=== PATIENT | male | born 1970 | race Caucasian/White ===

== ENCOUNTER 2018-04-27 11:34 | Day surgery (SDC) | payer OTHER ==
[~2018-04-27 11:34] MED LIST: FENTAnyl 50 MCG/ML VIAL; SUGAMMADEX SODIUM 200 MG/2 ML VIAL IV
[2018-04-27 13:26] LABS: ADD MAN DIFF? NO
[2018-04-27 13:28] LABS: BASOPHILS % 0.9 % (0.0-2.0); EOSINOPHILS # 0.2 10^3/ul (0.0-0.5); EOSINOPHILS % 3.6 % (0.0-7.0); HEMATOCRIT 45.8 % (42.0-52.0); HEMOGLOBIN 16.2 g/dl (14.0-18.0); LYMPHOCYTES # 1.4 10^3/ul (0.8-2.9); LYMPHOCYTES % 30.4 % (15.0-51.0); MEAN CORPUSCULAR HGB CONC 35.4 g/dl (32.0-37.0); MEAN CORPUSCULAR VOLUME 87.6 fl (82.0-101.0); MEAN PLATELET VOLUME 10.4 fl (7.4-10.4); MONOCYTE # 0.4 10^3/ul (0.3-0.9); MONOCYTES % 8.8 % (0.0-11.0); NEUTROPHIL # 2.5 10^3/ul (1.6-7.5); NEUTROPHILS % 55.8 % (39.0-77.0); PLATELET COUNT 169 10^3/UL (140-415); RED BLOOD COUNT 5.23 10^6/ul (4.70-6.10); RED CELL DISTRIBUTION WIDTH 11.5 % (11.5-14.5)
[2018-04-27 13:28] LABS: WHITE BLOOD COUNT 4.4 10^3/ul (4.8-10.8)
[2018-04-27 13:36] LABS: HOLD TRANSMISSIONS 1
[2018-04-27 13:48] LABS: PROTIME 12.2 Sec (11.9-14.9)
[2018-04-27 13:49] LABS: PARTIAL THROMBOPLASTIN TIME 27.3 Sec (25.0-35.0)
[2018-04-27 13:50] LABS: ALANINE AMINOTRANSFERASE 26 IU/L (13-69); ALBUMIN 4.3 g/dl (3.3-4.9); ALBUMIN/GLOBULIN RATIO 1.48; ALKALINE PHOSPHATASE 58 IU/L (42-121); ANION GAP 12 (8-16); ASPARTATE AMINO TRANSFERASE 20 IU/L (15-46); BILIRUBIN,INDIRECT 1.2 mg/dl (0-1.1); BILIRUBIN,TOTAL 1.2 mg/dl (0.2-1.3); CARBON DIOXIDE 27 mmol/L (21-31); CHLORIDE 109 mmol/L (97-110); GLUCOSE 94 mg/dl (70-220); TOTAL PROTEIN 7.2 g/dl (6.1-8.1)
[2018-04-27] MEDS ORDERED: SOD CHLORIDE 0.9% 1,000 ML IV (14:00)
[2018-04-27 14:03] LABS: BLOOD UREA NITROGEN 14 mg/dl (7-20); CREATININE 0.79 mg/dl (0.61-1.24); POTASSIUM 4.3 mmol/L (3.5-5.1); SODIUM 144 mmol/L (135-144)
[2018-04-27 14:04] LABS: CALCIUM 9.3 mg/dl (8.4-10.2)
[2018-04-27] MEDS ORDERED: POLYMYXIN/BACITRACIN 1L IRRIG (15:46)
[2018-04-27] MEDS ORDERED: GLYCOPYRROLATE 0.4 MG INJ (16:37)
[2018-04-27] MEDS ORDERED: NEOSTIGMINE 3 MG/3 ML SYRINGE (16:37)
[2018-04-27] MEDS ORDERED: FENTAnyl 50 MCG/ML VIAL ×3 (16:37→17:29)
[2018-04-27] MEDS ORDERED: ROCURONIUM 50 MG INJ (16:37)
[2018-04-27] MEDS ORDERED: ONDANSETRON 4 MG INJ (16:37)
[2018-04-27] MEDS ORDERED: DEXAMETHASONE 4 MG/ML 1 ML INJ (16:37)
[2018-04-27] MEDS ORDERED: PROPOFOL 20 ML (16:37)
[2018-04-27] MEDS ORDERED: MIDAZOLAM 1 MG/ML 2 ML INJ (16:37)
[2018-04-27] MEDS ORDERED: CEFAZOLIN 1 GM INJ (16:37)
[2018-04-27] MEDS: CEFAZOLIN 2 GM/50 ML (PMX) 50 ML IVPB (16:38)
[2018-04-27] MEDS ORDERED: LABETALOL HCL 20MG INJ IV (17:00)
[2018-04-27] MEDS ORDERED: ONDANSETRON 4 MG INJ IV (17:00)
[2018-04-27] MEDS ORDERED: OXYCODONE/ACETAMINOPHEN (5/325) TAB PO ×2 (17:00)
[2018-04-27] MEDS ORDERED: IPRATROPIUM (NEB) 0.5 MG/2.5 ML AMP HHN (17:00)
[2018-04-27] MEDS ORDERED: TRIMETHOBENZAMIDE 100 MG/ML VIAL IM (17:00)
[2018-04-27] MEDS ORDERED: MIDAZOLAM 1 MG/ML 2 ML INJ IV (17:00)
[2018-04-27] MEDS ORDERED: HYDROmorphONE 1 MG/5 ML IV SYRINGE IV ×2 (17:00)
[2018-04-27] MEDS ORDERED: ALBUTEROL 0.083% (NEB) 2.5 MG/3 ML AMP HHN (17:00)
[2018-04-27] MEDS ORDERED: hydrALAzine 20 MG INJ IV (17:00)
[2018-04-27] MEDS ORDERED: EPHEDrine SULFATE 50 MG/5 ML SYG IV (17:00)
[2018-04-27] MEDS ORDERED: FENTAnyl 50 MCG/ML VIAL IV ×2 (17:00)
[2018-04-27] MEDS ORDERED: DIPHENHYDRAMINE 50 MG INJ IV (17:00)
[2018-04-27] MEDS: BUPIVACAINE 0.25% (MPF) 30 ML INJ (17:05)
[2018-04-27] MEDS ORDERED: KETOROLAC 30 MG INJ (17:28)
[2018-04-27] MEDS: HYDROCODONE/APAP (5/325) TAB PO ×2 (17:30→19:05)
[2018-04-27] MEDS: MEPERIDINE 25 MG INJ IV (18:57)
[2018-04-27] MEDS: HYDROmorphONE 1 MG/5 ML IV SYRINGE IV (18:58)
[2018-04-27] MEDS: FENTAnyl 50 MCG/ML VIAL IV (18:58)
== END 2018-04-27 19:30 | disposition home or self-care (01) ==
LOC: SDS 11:34
DX: K43.9 Ventral hernia without obstruction or gangrene (principal); Z85.72 Personal history of non-Hodgkin lymphomas; R07.81 Pleurodynia
CPT/HCPCS: 49653; 71045; 80053; 85025; 85610; 85730; 93005